=== PATIENT | male | born 1970 | race Caucasian/White ===

== ENCOUNTER 2022-05-19 02:32 | Emergency (ER) | payer MEDICARE ==
[~2022-05-19] VITALS: Ht 180.3 cm; Wt 104.5 kg
[2022-05-19 03:01] VITALS: TEMP 97.5
[2022-05-19 03:24] LABS: BASO # 0.1 K/mm3 (0.0-0.2); BASO % 0.5 % (0.0-2.0); EOS # 0.1 K/mm3 (0.0-0.7); EOS % 1.3 % (0.0-4.0); GRAN # 8.4 K/mm3 (1.4-6.5); GRAN % 83.8 % (42.2-75.2); HEMOGLOBIN 10.5 g/dl (13.5-18.0); LYMPH # 0.4 K/mm3 (1.2-3.4); LYMPH % 4.4 % (20.0-51.0); MEAN CELL VOLUME 79 fl (80.0-100.0); MEAN CORPUSCULAR HEMOGLOBIN 29 pg (27-31); MEAN CORPUSCULAR HGB CONC 37 g/dl (33.0-37.0); MEAN PLATELET VOLUME 9.2 fl (7.4-10.4); MONO % 9.5 % (1.7-9.3); PLATELET COUNT 151 K/mm3 (130-400); RED BLOOD COUNT 3.64 M/mm3 (4.20-5.60); REDCELL DISTRIBUTION WIDTH-CV 12.5 % (11.5-14.5)
[2022-05-19 03:25] LABS: HEMATOCRIT 28.7 % (42.0-52.0)
[2022-05-19 03:48] LABS: ALBUMIN 2.3 gm/dL (3.5-5.0); BILIRUBIN,TOTAL 0.7 mg/dL (0.2-1.2); CALCIUM 8.6 mg/dL (8.4-10.2); CREATININE, serum 12.17 mg/dL (0.72-1.25); POTASSIUM 3.5 mmol/L (3.5-4.5); TOTAL PROTEIN 6.3 gm/dL (6.2-8.1)
[2022-05-19 03:50] LABS: C-REACTIVE PROTEIN 19.71 mg/dL (0.00-0.50)
[2022-05-19 03:54] LABS: ERYTHROCYTE SEDIMENTATION RATE 111 mm/hr (0-15)
[2022-05-19] MEDS ORDERED: PRINIVIL40 MG PO (06:19)
[2022-05-19] MEDS ORDERED: LIPITOR 40MG TA40 MG PO (06:19)
[2022-05-19] MEDS ORDERED: ROCALTROL0.5 MCG PO (06:19)
[2022-05-19] MEDS ORDERED: CLEOCIN HCL300 MG PO (06:20)
[2022-05-19 07:16] VITALS: BP 123/87
[2022-05-19 07:45] VITALS: PULSE 79
== END 2022-05-19 07:51 | disposition short-term general hospital (02) ==
LOC: COL.ER 02:32
PROVIDERS: Emergency Medicine
DX: E11.52 Type 2 diabetes mellitus with diabetic peripheral angiopathy with gangrene (principal); I96 Gangrene, not elsewhere classified; I12.0 Hypertensive chronic kidney disease with stage 5 chronic kidney disease or end stage renal disease; E11.22 Type 2 diabetes mellitus with diabetic chronic kidney disease; N18.6 End stage renal disease; Z20.822 Contact with and (suspected) exposure to COVID-19; Z99.2 Dependence on renal dialysis
CPT/HCPCS: J2543